=== PATIENT | female | born 1985 | race African-American/Black ===

== ENCOUNTER 2017-05-25 10:02 | Emergency (ER) | payer MEDICAID ==
[~2017-05-25] VITALS: Ht 165.1 cm; Wt 65.0 kg
[2017-05-25] MEDS ORDERED: ACETAMINOPHEN 325MG TABLET PO ONE (11:00)
[2017-05-25] MEDS ORDERED: CYCLOBENZAPRINE 10MG TABLET PO ONE (11:00)
[2017-05-25] MEDS ORDERED: SUMATRIPTAN SUCCINATE 25MG TABLET PO ONE (13:00)
[2017-05-25 13:32] VITALS: BP 120/58
== END 2017-05-25 13:33 | disposition home or self-care (01) ==
LOC: ER 10:52
DX: S09.8XXA Other specified injuries of head, initial encounter (principal); G43.909 Migraine, unspecified, not intractable, without status migrainosus; V43.62XA Car passenger injured in collision with other type car in traffic accident, initial encounter; Y93.89 Activity, other specified; Y92.488 Other paved roadways as the place of occurrence of the external cause
CPT/HCPCS: 72125; 99284